=== PATIENT | female | born 1935 | race Caucasian/White ===

== ENCOUNTER 2017-12-13 05:24 | Day surgery (SDC) | payer OTHER ==
[~2017-12-13] VITALS: Ht 167.6 cm; Wt 81.7 kg
[~2017-12-13 05:24] MED LIST: ALLEGRA ALLERG180 MG PO; ARTIFICIAL TEAR15 M1 OPHTHALMIC; ASPIR 8181 M1 PO; CALCITRIOL0.5 MCG PO; CALCIUM 600 +1 EAC1 PO; CARVEDILOL12.5 MG PO; CELLCEPT500 MG PO; CLOTRIMAZOLE10 MG PO; COREG6.25 MG PO; DOXYCYCLINE HY100 M3 PO; GENGRAF25 MG PO; IMODIUM A-D2 MG PO; IRON325 PO; LASIX 40 MG TAB40 M2 PO; LEVOTHYROXINE112 MCG PO; LISINOPRIL2.5 M1 PO; NEURONTIN 300300 M1 PO; NOVOLIN N100 UNIT/1 SUBQ; NOVOLIN R100 UNIT/1 SUBQ; PRAVACHOL20 MG PO; PROTONIX40 M1 PO; TYLENOL EXTRA500 MG PO; VITAMIN D-32000 UNIT PO
[2017-12-13 11:02] LABS: CALCIUM 9.4 mg/dL (8.5-10.1); CREATININE 1.3 mg/dL (0.6-1.0); POTASSIUM 4.2 mmol/L (3.5-5.1)
[2017-12-13 11:06] LABS: ALBUMIN 3.3 g/dL (3.4-5.0); TOTAL BILIRUBIN 0.6 mg/dL (<0.1-1.0); TOTAL PROTEIN 7.3 g/dL (6.4-8.2)
[2017-12-13 11:18] VITALS: BP 137/56
== END 2017-12-13 13:20 | disposition home or self-care (01) ==
LOC: TBA 05:24 → OR 05:24
PROVIDERS: Podiatrist
DX: M86.172 Other acute osteomyelitis, left ankle and foot (principal); L97.524 Non-pressure chronic ulcer of other part of left foot with necrosis of bone; E11.621 Type 2 diabetes mellitus with foot ulcer; I10 Essential (primary) hypertension; I25.10 Atherosclerotic heart disease of native coronary artery without angina pectoris; I25.2 Old myocardial infarction; E11.40 Type 2 diabetes mellitus with diabetic neuropathy, unspecified; I48.91 Unspecified atrial fibrillation; E78.5 Hyperlipidemia, unspecified; J45.909 Unspecified asthma, uncomplicated; M81.0 Age-related osteoporosis without current pathological fracture; E03.9 Hypothyroidism, unspecified; K21.9 Gastro-esophageal reflux disease without esophagitis; E66.09 Other obesity due to excess calories; I73.9 Peripheral vascular disease, unspecified; D64.9 Anemia, unspecified; Z86.718 Personal history of other venous thrombosis and embolism; Z79.01 Long term (current) use of anticoagulants; Z88.0 Allergy status to penicillin; Z88.2 Allergy status to sulfonamides; Z88.8 Allergy status to other drugs, medicaments and biological substances; Z98.890 Other specified postprocedural states; Z91.040 Latex allergy status; Z79.899 Other long term (current) drug therapy; Z95.5 Presence of coronary angioplasty implant and graft; Z79.4 Long term (current) use of insulin; Z98.41 Cataract extraction status, right eye; Z98.42 Cataract extraction status, left eye; Z90.49 Acquired absence of other specified parts of digestive tract; Z68.26 Body mass index [BMI] 26.0-26.9, adult
CPT/HCPCS: 50010; 50101; 50386; 53010; 56526; 56527; 57091